=== PATIENT | male | born 1965 | race Caucasian/White ===

== ENCOUNTER 2025-02-13 12:33 | Emergency (ER) | payer BC ==
[~2025-02-13] VITALS: Ht 177.8 cm; Wt 103.0 kg
[2025-02-13 12:42] VITALS: TEMP 97.8
[2025-02-13 13:09] LABS: BASOPHILS # (AUTO) 0.1 (0.0-0.1); BASOPHILS % 0.7 % (0.0-1.0); EOSINOPHILS # (AUTO) 0.1 (0.0-0.4); EOSINOPHILS % 0.7 % (0.0-6.0); HEMATOCRIT 38.9 % (38.2-49.6); HEMOGLOBIN 13.1 g/dL (14.0-18.0); LYMPHOCYTES # (AUTO) 1.7 (1.0-3.2); MEAN CORPUSCULAR HEMOGLOBIN 29.5 pg (28-32); MEAN CORPUSCULAR HGB CONC 33.7 g/dL (31-35); MEAN CORPUSCULAR VOLUME 87.6 fL (81-99); MONOCYTES # (AUTO) 0.5 (0.2-0.8); MONOCYTES % 5.2 % (4.4-11.3); NEUTROPHILS # (AUTO) 6.5 (2.1-6.9); NEUTROPHILS % 74.1 % (38.7-80.0); PLATELET COUNT 336 x10e3/uL (140-360); RED BLOOD COUNT 4.44 x10e6/uL (4.3-5.7); RED CELL DISTRIBUTION WIDTH 12.6 % (11.7-14.4); WHITE BLOOD COUNT 8.82 x10e3/uL (4.8-10.8)
[2025-02-13] MEDS ORDERED: METFORMIN HCL1000 MG (13:21)
[2025-02-13] MEDS ORDERED: BUPRENORP-NALO1 EACH (13:21)
[2025-02-13] MEDS ORDERED: FARXIGA10 MG (13:21)
[2025-02-13] MEDS ORDERED: ATORVASTATIN CA20 MG (13:21)
[2025-02-13] MEDS ORDERED: MOUNJARO10 MG/0.5 (13:21)
[2025-02-13] MEDS ORDERED: CEPHALEXIN500 MG (13:21)
[2025-02-13] MEDS ORDERED: LISINOPRIL30 MG (13:21)
[2025-02-13 13:30] VITALS: PULSE 71; RESP 14; O2SAT 97
[2025-02-13 13:34] LABS: ALBUMIN 3.9 g/dL (3.5-5.0); ALBUMIN/GLOBULIN RATIO 1.1 (0.8-2.0); ANION GAP 14.8 mmol/L (8-16); BILIRUBIN,TOTAL 0.4 mg/dL (0.2-1.2); CALCIUM 9.7 mg/dL (8.4-10.2); CREATININE, SERUM 1.01 mg/dL (0.72-1.25); POTASSIUM 4.8 mmol/L (3.5-5.1); TOTAL PROTEIN 7.5 g/dL (6.5-8.1)
[2025-02-13 13:40] LABS: TROPONIN I 0.004 ng/mL (0-0.300)
[2025-02-13] MEDS: LACTATED RINGER'S 1,000 ML INJ ONE (13:52)
[2025-02-13] MEDS ORDERED: MECLIZINE HCL12.5 MG PO (15:03)
== END 2025-02-13 15:12 | disposition home or self-care (01) ==
LOC: ER 12:47
DX: R42 Dizziness and giddiness (principal); I10 Essential (primary) hypertension; E11.65 Type 2 diabetes mellitus with hyperglycemia; E78.5 Hyperlipidemia, unspecified; R94.31 Abnormal electrocardiogram [ECG] [EKG]; F17.210 Nicotine dependence, cigarettes, uncomplicated
CPT/HCPCS: 36415; 70450; 71045; 80053; 84484; 85025; 93005; 99284; J7121